=== PATIENT | male | born 1990 | race Caucasian/White ===

== ENCOUNTER 2018-02-15 07:38 | Outpatient (CLI) | payer BC ==
--- NOTE | 2018-02-15 12:12 | NM ---
NUCLEAR MEDICINE GASTRIC EMPTYING STUDY WITH MEAL: Date: 02/15/18 HISTORY: Nausea with vomiting, unspecified. COMPARISON: None. TECHNIQUE: Patient given 2 mCi technetium-99m sulfur colloid orally in eggs. FINDINGS: The gastric emptying at 30 minutes is 93%, at 1 hour is 95%, and at 2 hours is 100%. IMPRESSION: Rapid gastric emptying. POS: [facility]
== END 2018-02-15 07:39 | disposition home or self-care (01) ==
LOC: NM 07:38
PROVIDERS: ATTEND Internal Medicine Gastroenterology
DX: R11.2 Nausea with vomiting, unspecified (principal)
CPT/HCPCS: 78264; A9541

== ENCOUNTER 2019-02-25 13:20 | Emergency (ER) | payer BC ==
[2019-02-25 13:37] LABS: #Eosinphils 0.3 thou/uL (0.0-0.7); #Lymphocytes 1.9 thou/uL (1.20-3.40); #Monocytes 0.6 thou/uL (0.11-0.59); #Neutrophils 5.3 thou/uL (1.40-6.50); %Basophils 0.4 % (0.0-1.0); %Eosinophils 3.4 % (0.0-10.0); %Lymphocytes 23.3 % (21.0-51.0); %Monocytes 7.7 % (0.0-10.0); %Neutrophils 65.2 % (42.0-75.0); Hemoglobin 14.9 g/dL (14.0-18.0); Mean Corpuscular HGB CONC 35.6 g/dL (32.0-36.0); Mean Corpuscular Hemoglobin 31.7 pg (27.0-31.0); Mean Corpuscular Volume 89.3 fL (78.0-98.0); Platelet Count 342 thou/uL (130-400); RBC Distribution Width 12.5 % (11.5-14.5); White Blood Cell (WBC) Count 8.1 thou/uL (4.8-10.8)
[2019-02-25 13:48] LABS: ALT (SGPT) 29 U/L (8-55); AST (SGOT) 23 U/L (5-34); Albumin 4.6 g/dL (3.5-5.0); Alkaline Phosphatase 80 U/L (40-150); Anion Gap 16 mmol/L (10-20); BUN (Urea Nitrogen) 11 mg/dL (8.9-20.6); Bilirubin, Total 0.8 mg/dL (0.2-1.2); Calc. Creatinine Clearance 0 mL/min (70-130); Calcium 9.5 mg/dL (7.8-10.44); Carbon Dioxide 21 mmol/L (22-29); Chloride 103 mmol/L (98-107); Estimated GFR-MDRD Greater than 90; Globulin 3.3 g/dL (2.4-3.5); Glucose 113 mg/dL (70-105); Protein, Total 7.9 g/dL (6.0-8.3); Sodium 137 mmol/L (136-145)
--- NOTE | 2019-02-25 14:21 | CT ---
CT PULMONARY ANGIOGRAM WITH IV CONTRAST AND 3-D POSTPROCESSING: HISTORY:Elevated d-dimer, tachycardia. Chest pain and shortness of breath FINDINGS: There is suboptimal contrast opacification of the pulmonary arterial vasculature (<200HU) to satisfac torily evaluate for pulmonary embolism. The thoracic aorta is well opacified without aneurysm or dissection. No pleural or pericardial effusions are seen. There is a 15 mm lymph node anterior to the left pulmon leanne artery. No pneumothoraces, focal areas of consolidation or lung nodules are noted. There are mild dependent c hanges in the lung bases. A small hiatal hernia is present. IMPRESSION: Exam is nondiagnostic for pulmonary embolism.
[2019-02-25] MEDS ORDERED: Ondansetron PF 4 MG/2 ML Vial ONE (14:39)
--- NOTE | 2019-02-25 16:15 | NM ---
VQ SCAN: HISTORY: Chest pain, shortness of breath, elevated d-dimer, tachycardia, nondiagnostic CT pulmonary a ngiogram TECHNIQUE: A ventilation/perfusion scan was performed using 12.3 mCi xenon-133 by inhalation for the ventilation study followed by the intravenous administration of 6.1 mCi technetium 99m-MAA for the perfusion scan. CORRELATION: CT pulmonary angiogram from earlier today. FINDINGS: There is elevation the right hemidiaphragm. Fairly homogeneous tracer distribution is noted to the lung crooks bilaterally on ventilation and per fusion scans. No mismatched pleural-based, wedge-shaped, segmental or subsegmental perfusion defects are identified . IMPRESSION: Very low probability for pulmonary embolism.
[2019-02-25] MEDS ORDERED: ISOVUE-370 76%-LOCM 1 ML ONE (16:19)
[2019-02-25] MEDS ORDERED: Lorazepam 2 MG/ML VIAL ONE (17:08)
--- NOTE | 2019-02-25 17:31 | ULT ---
BILATERAL LOWER EXTREMITY ULTRASOUND WITH VENOUS DOPPLER DUPLEX: CPT: 89253 ICD-10-PCS: B54D INDICATIONS: Pain. Recent surgery of left knee. TECHNIQUE: Color-flow Doppler, spectral wave-form analysis of pulsed Doppler, and bloom-scale imaging with compre ssion and augmentation were used to evaluate the bilateral common femoral, femoral, popliteal, floor care specialist ior tibial, and superficial femoral veins, and the proximal portions of the profunda femoral and grea ter saphenous veins. FINDINGS: There is appropriate compressibility and flow within the imaged deep venous system of each lower extr emity, without evidence of thrombus. IMPRESSION: No deep venous thrombosis of the imaged bilateral lower extremities. POS: [facility]
== END 2019-02-25 17:15 | disposition home or self-care (01) ==
LOC: ERS 13:20
DX: R00.2 Palpitations (principal)
CPT/HCPCS: 71275; 78582; 80053; 84443; 84484; 85025; 85379; 93005; 93970; 96361; 96374; 96375; A9540; A9558; J2060; J2405; Q9966

== ENCOUNTER 2019-10-25 06:57 | Outpatient (CLI) | payer BC ==
--- NOTE | 2019-10-25 07:47 | ULT ---
ULTRASOUND ABDOMEN: HISTORY: Nausea and vomiting. FINDINGS: The liver demonstrates increased echogenicity consistent with fatty infiltration. No focal mass or i ntrahepatic ductal dilatation is seen. No gallstones, gallbladder wall thickening, or pericholecysti c fluid is seen. The common duct measures 5 mm in diameter. The spleen, kidneys, and visualized por tions of the pancreas, aorta, and IVC appear normal. No free fluid is seen. IMPRESSION: 1. Fatty liver. 2. No evidence of cholelithiasis. POS: [facility]
== END 2019-10-25 06:58 | disposition home or self-care (01) ==
LOC: BICULT 06:57
PROVIDERS: ATTEND Internal Medicine
DX: K44.9 Diaphragmatic hernia without obstruction or gangrene (principal); R11.2 Nausea with vomiting, unspecified; K20.9 Esophagitis, unspecified; K76.0 Fatty (change of) liver, not elsewhere classified
CPT/HCPCS: 93975